=== PATIENT | female | born 1970 | race Two or more races ===

== ENCOUNTER 2021-12-15 05:50 | Day surgery (SDC) | payer OTHER ==
[~2021-12-15] VITALS: Ht 175.3 cm; Wt 111.6 kg
[~2021-12-15 05:50] MED LIST: BUSPIRONE HCL30 MG PO; LOSARTAN-HCTZ1 EAC1 PO; [UNRECOGNIZED DRUG - OTHER] PO
== END 2021-12-15 19:22 | disposition home or self-care (01) ==
LOC: CIR.AMB 05:50
PROVIDERS: ATTEND Obstetrics & Gynecology
DX: N80.0 Endometriosis of uterus (principal); N85.8 Other specified noninflammatory disorders of uterus; Z88.6 Allergy status to analgesic agent; Z91.013 Allergy to seafood; I10 Essential (primary) hypertension; Z86.16 Personal history of COVID-19; J45.909 Unspecified asthma, uncomplicated; G43.909 Migraine, unspecified, not intractable, without status migrainosus; E66.9 Obesity, unspecified; Z20.822 Contact with and (suspected) exposure to COVID-19

== ENCOUNTER 2022-01-16 09:45 | Inpatient (IN) | payer OTHER ==
[~2022-01-16] VITALS: Ht 175.3 cm; Wt 111.6 kg
[2022-01-27] MEDS ORDERED: DOXEPIN HCL10 MG (08:35)
[2022-01-27] MEDS ORDERED: FLUOXETINE HCL20 MG (08:35)
[2022-01-27] MEDS ORDERED: LAMICTAL100 MG (08:36)
[2022-01-27] MEDS ORDERED: DOXAZOSIN MESYLA4 MG (08:36)
[2022-01-27] MEDS ORDERED: BUPROPION XL300 MG (08:36)
[2022-01-27] MEDS ORDERED: HYDROCHLOROTHIA25 MG (08:36)
[2022-01-27] MEDS ORDERED: CLOTRIMAZOLE-BE15 G1 (08:36)
[2022-01-27] MEDS ORDERED: LOSARTAN POTAS100 MG (08:36)
== END 2022-01-29 10:13 | disposition home or self-care (01) | DRG 743 ==
LOC: ADM 09:45 → U 01-19 14:00 → EDSTATUS 01-23 10:15 → ADM 01-23 10:15 → OB/GYN 01-26 06:15 → O/R 01-26 06:15 → OB/GYN 01-26 10:15
PROVIDERS: ADMIT Obstetrics & Gynecology; ATTEND Obstetrics & Gynecology
PROC: 0UT70ZZ Resection of Bilateral Fallopian Tubes, Open Approach (ICD-10-PCS; 2022-01-26)
PROC: 0UB20ZZ Excision of Bilateral Ovaries, Open Approach (ICD-10-PCS; 2022-01-26)
PROC: 0UT90ZZ Resection of Uterus, Open Approach (ICD-10-PCS; principal; 2022-01-26 16:15)
DX: D25.1 Intramural leiomyoma of uterus (principal); N80.0 Endometriosis of uterus; N72 Inflammatory disease of cervix uteri; N83.11 Corpus luteum cyst of right ovary; N83.292 Other ovarian cyst, left side; N83.02 Follicular cyst of left ovary; N83.01 Follicular cyst of right ovary; Z20.822 Contact with and (suspected) exposure to COVID-19